=== PATIENT | female | born 1935 | race Caucasian/White ===

== ENCOUNTER 2016-09-25 13:20 | Emergency (ER) | payer MEDICARE ==
[~2016-09-25] VITALS: Ht 147.3 cm; Wt 65.0 kg
[~2016-09-25 13:20] MED LIST: ACIDOPHILU4 PO; ANTIVERT OR; AZO TABS95 MG OR; BABY ASPIRIN81 MG OR; BACTRIM DS1 TAB PO; BAYER ASPIRIN E81 MG PO; BILBERRY500 MG OR; BILBERRY500 MG PO; BONIVA150 MG OR; BONIVA150 MG PO; CALCIUM MAGN OR; CAYENNE OR; CHROMIUM PIC500 MCG PO; CINNAMON500 MG OR; CINNAMON500 MG PO; CR-PLUS500 MCG PO; CRAN CONC500 MG OR; CYSTEX OR; FISH OIL1200 M1 PO; FLAXSEED OIL1000 MG PO; FLEXERIL OR; FLEXERIL10 MG PO; GARLIC1000 MG OR; GAS RELIEF125 M2 PO; GINGER ROOT550 MG OR; HYD PO; L-LYSINE500 M2 PO; LORTAB 1010 MG PO; LORTAB 5 PO; MAXZIDE-25 OR; MAXZIDE-2537.5 MG/TA PO; MOTRIN400 MG PO; NAPROSYN500 MG OR; NEXIUM40 M1 OR; NIACIN500 MG OR; PERCOCET 5/325M1 TAB PO; PRILOSEC20 MG PO; PRO-BIOTIC PO; SELENIUM200 MCG OR; STOOL SOFTENER100 MG PO; TRAMADOL HCL100 MG OR; TRIAMT/HCTZ1 TA1 PO; TRIAMTERENE PO; TRICOR145 MG PO; ULTRACET OR; ULTRAM50 M1 PO; ULTRAM50 MG OR; VIT C250 MG PO; VITAMIN B OR; VITAMIN C1000 MG OR; VITAMIN D1000 UNI1 OR; VITAMIN E200 UNIT OR; [UNRECOGNIZED DRUG - CODE] OR; [UNRECOGNIZED DRUG - CODE] PO; [UNRECOGNIZED DRUG - OTHER]; [UNRECOGNIZED DRUG - OTHER] OR; [UNRECOGNIZED DRUG - OTHER] PO; [UNRECOGNIZED DRUG - OTHER] PO
[2016-09-25] MEDS ORDERED: MAXZIDE-2537.5 MG/TA PO (13:37)
[2016-09-25] MEDS ORDERED: MELOXICAM7.5 MG PO (13:38)
[2016-09-25] MEDS ORDERED: PERCOCET 5/325M1 TAB PO (15:05)
[2016-09-25 15:06] VITALS: BP 131/76
== END 2016-09-25 15:22 | disposition home or self-care (01) ==
LOC: ED 13:20
DX: R07.81 Pleurodynia (principal); Z87.81 Personal history of (healed) traumatic fracture; R07.1 Chest pain on breathing; R50.9 Fever, unspecified

== ENCOUNTER 2016-10-10 11:07 | Day surgery (SDC) | payer MEDICARE ==
[~2016-10-10] VITALS: Ht 147.3 cm; Wt 64.4 kg
[~2016-10-10 11:07] MED LIST changes: +ADULT ASPIRIN E81 MG PO; +CAL MAG ZINC PO; +CITRACAL200 MG PO; +GARLIC OIL1000 M1 PO; +MELOXICAM7.5 MG PO; +MIRALAX3350 N1 PO; +NIACIN SR500 M1 PO; +PROBIOTIC ACIDOPHILU PO; +VITAMIN B-COMPLEX PO; +VITAMIN C1000 MG PO; +VITAMIN E100 UNI1 PO; +[UNRECOGNIZED DRUG - OTHER] PO
[2016-10-10] MEDS ORDERED: PERCOCET 5/325M1 TAB PO (11:20)
[2016-10-10 14:49] VITALS: BP 140/69
== END 2016-10-10 14:25 | disposition home or self-care (01) ==
LOC: ORM 11:07
PROVIDERS: ATTEND Neurological Surgery
PROC: 3E0T33Z Introduction of Anti-inflammatory into Peripheral Nerves and Plexi, Percutaneous Approach (ICD-10-PCS; principal; 2016-10-10)
PROC: 3E0T3BZ Introduction of Anesthetic Agent into Peripheral Nerves and Plexi, Percutaneous Approach (ICD-10-PCS; 2016-10-10)
DX: M54.17 Radiculopathy, lumbosacral region (principal); M46.96 Unspecified inflammatory spondylopathy, lumbar region

== ENCOUNTER 2016-12-28 12:40 | Emergency (ER) | payer MEDICARE ==
[~2016-12-28] VITALS: Ht 147.3 cm; Wt 65.0 kg
[~2016-12-28 12:40] MED LIST changes: +CITRACA2 PO; -CITRACAL200 MG PO; -GARLIC OIL1000 M1 PO; +GARLIC OIL1000 MG PO
[2016-12-28 14:13] LABS: HEMOGLOBIN 14.6 g/dl (12.0-16.0); IMMATURE GRANULOCYTES 0.3 % (0.0-1.0); MEAN CELL VOLUME 86.9 fL CALC (80.0-100.0); MEAN CORPUSCULAR HGB 29.5 pG CALC (26.0-32.0); NEUT# 4.37 thou/uL (2.00-7.15); RED BLOOD COUNT 4.95 mill/uL (4.20-5.60); RED CELL DISTRI WIDTH 14.2 % (11.5-15.5)
[2016-12-28 14:33] LABS: ALBUMIN 4.8 g/dL (3.2-5.0); ALKALINE PHOSPHATASE 39 u/l (38-126); ANION GAP 21 (6-22 (CALC)); BILIRUBIN, TOTAL 0.8 mg/dL (0.0-1.4); BUN 14 mg/dL (8-23); BUN/CREATININE RATIO 24 (12-20 (CALC)); CALCIUM 9.3 mg/dL (8.4-10.2); CARBON DIOXIDE 21 mmol/l (22-30); CHLORIDE 98 mmol/l (95-108); CREATININE 0.6 mg/dL (0.5-1.0); GFR > 60 ML/MIN (>=60 (CALC)); GFR FOR AFR.AMER. > 60 ML/MIN (>=60 (CALC)); GLUCOSE 93 mg/dL (82-115); POTASSIUM 3.6 mmol/l (3.5-5.1); SGOT/AST 27 u/l (9-36); SGPT/ALT 30 u/l (11-66); SODIUM 137 mmol/l (137-146); TOTAL PROTEIN 7.7 g/dL (6.3-8.2)
[2016-12-28 14:45] LABS: MYOGLOBIN 31 ng/mL (0 - 62)
[2016-12-28] MEDS ORDERED: SLO-NIACIN500 MG PO (15:00)
[2016-12-28] MEDS ORDERED: ADLT ASA LOW81 MG PO (15:00)
[2016-12-28] MEDS ORDERED: PERCOCET1 TA4 PO (15:34)
[2016-12-28 15:45] VITALS: BP 139/74
== END 2016-12-28 15:45 | disposition home or self-care (01) ==
LOC: ED 12:40
PROVIDERS: Emergency Medicine
DX: M54.6 Pain in thoracic spine (principal); M54.5 Low back pain; M48.54XA Collapsed vertebra, not elsewhere classified, thoracic region, initial encounter for fracture; M47.814 Spondylosis without myelopathy or radiculopathy, thoracic region

== ENCOUNTER → 2018-08-24 | Outpatient (REF) | payer MEDICARE ==
[~2018-08-24] MED LIST changes: +ADLT ASA LOW81 MG PO; +PERCOCET1 TA4 PO; +SLO-NIACIN500 MG PO
[2018-08-24 10:16] LABS: BUN 19 mg/dL (8-23); BUN/CREATININE RATIO 32 (12-20 (CALC)); CALCULATED LDLCHOLESTEROL 86 mg/dL (62-129 (CALC)); CARBON DIOXIDE 26 mmol/l (22-30); CHOLESTEROL HDL RATIO 2.5 (<4.4 (CALC)); CREATININE 0.6 mg/dL (0.5-1.0); GFR > 60 ML/MIN (>=60 (CALC)); GFR FOR AFR.AMER. > 60 ML/MIN (>=60 (CALC)); HDL CHOLESTEROL 70 mg/dL (>=40); POTASSIUM 4.1 mmol/l (3.5-5.1); SODIUM 137 mmol/l (137-146); TOTAL CHOLESTEROL 174 mg/dl (0-199); TOTAL TRIGLYCERIDES 93 mg/dl (30-149); VLDL CHOLESTROL 19 mg/dl (0-48 (CALC))
[2018-08-24 10:17] LABS: ANION GAP 15 (6-22 (CALC)); CHLORIDE 100 mmol/l (95-108)
[2018-08-24 10:46] LABS: TSH, 3RD GENERATION 0.78 uIU/mL (0.47 - 4.68)
== END | disposition home or self-care (01) ==
LOC: LAB 09:26
PROVIDERS: ATTEND Nurse Practitioner Family
DX: I10 Essential (primary) hypertension (principal); E78.49 Other hyperlipidemia

== ENCOUNTER 2021-11-30 21:58 | Emergency (ER) | payer MEDICARE ==
[~2021-11-30] VITALS: Ht 147.3 cm; Wt 54.0 kg
[~2021-11-30 21:58] MED LIST changes: +MECLIZINE25 MG PO
[2021-11-30] MEDS ORDERED: TRAMADOL HCL50 MG PO (22:40)
[2021-11-30] MEDS ORDERED: FISH OIL1000 MG PO (22:43)
[2021-11-30 22:58] LABS: URINE BILIRUBIN - DIPSTICK NEGATIVE (NEGATIVE); URINE BLOOD DIPSTICK NEGATIVE (NEGATIVE); URINE COLOR YELLOW; URINE GLUCOSE - DIPSTICK NEGATIVE (NEGATIVE); URINE KETONE NEGATIVE (NEGATIVE); URINE PROTEIN - DIPSTICK NEGATIVE (NEG-TRACE); URINE SPECIFIC GRAVITY 1.025; URINE UROBILINOGEN - DIPSTICK 0.2 E.U./dL (0.2)
[2021-11-30 23:04] LABS: URINE LEUK ESTERASE SMALL (NEGATIVE); URINE NITRITE - DIPSTICK NEGATIVE (Negative)
[2021-11-30 23:05] LABS: URINE RBC 0-2 RBC/hpf (0-5); URINE SQUAMOUS EPITHELIAL CELL FEW EPI/hpf (0-FEW)
[2021-11-30] MEDS ORDERED: KEFLEX500 MG PO (23:17)
[2021-11-30 23:35] VITALS: BP 149/84
== END 2021-11-30 23:47 | disposition home or self-care (01) ==
LOC: ED 21:58
PROVIDERS: Emergency Medicine
DX: S20.211A Contusion of right front wall of thorax, initial encounter (principal); N39.0 Urinary tract infection, site not specified; W18.11XA Fall from or off toilet without subsequent striking against object, initial encounter

== ENCOUNTER 2023-02-18 23:04 | Emergency (ER) | payer MEDICARE ==
[~2023-02-18] VITALS: Ht 149.9 cm; Wt 49.9 kg
[~2023-02-18 23:04] MED LIST changes: +FISH OIL1000 MG PO; +KEFLEX500 MG PO; +TRAMADOL HCL50 MG PO
[2023-02-18 23:13] VITALS: BP 206/100
[2023-02-18 23:15] VITALS: BP 196/107
[2023-02-18 23:45] VITALS: BP 166/98
[2023-02-19] VITALS: BP 177/98
[2023-02-19 00:15] VITALS: BP 183/101
[2023-02-19 00:55] VITALS: BP 180/92
== END 2023-02-19 00:56 | disposition home or self-care (01) ==
LOC: ED 23:04
DX: S93.601A Unspecified sprain of right foot, initial encounter (principal); W18.30XA Fall on same level, unspecified, initial encounter